=== PATIENT | female | born 1945 | race Caucasian/White ===

== ENCOUNTER 2018-05-16 09:20 | Emergency (ER) | payer MEDICARE ==
--- NOTE | 2018-05-16 09:35 | EDM.PDOC ---
ED HPI GENERAL MEDICAL PROBLEM - General Stated Complaint: BLADDER PAIN Time Seen by Provider: 05/16/18 09:32 - History of Present Illness INITIAL COMMENTS - FREE TEXT/NARRATIVE: HISTORY AND PHYSICAL: History of present illness: Patient is a 72-year-old white female sensory concern of urinary tract infection patient that she's had some mild discomfort and urgency with urination that she is familiar with this and that this clearly represents the start of urinary tract infection she denies back pain fever chills nausea vomiting or other complaints Review of systems: As per history of present illness and below otherwise all systems reviewed and negative. Past medical history: As per history of present illness and as reviewed below otherwise noncontributory. Surgical history: As per history of present illness and as reviewed below otherwise noncontributory. Social history: No reported history of drug or alcohol abuse. Family history: As per history of present illness and as reviewed below otherwise noncontributory. Physical exam: HEENT: Atraumatic, normocephalic, pupils reactive, negative for conjunctival pallor or scleral icterus, mucous membranes moist, throat clear, neck supple, nontender, trachea midline. Lungs: Clear to auscultation, breath sounds equal bilaterally, chest nontender. Heart: S1S2, regular, negative for clicks, rubs, or JVD. Abdomen: Soft, nondistended, nontender. Negative for masses or hepatosplenomegaly. Negative for costovertebral tenderness. Pelvis: Stable nontender. Genitourinary: Deferred. Rectal: Deferred. Extremities: Atraumatic, negative for cords or calf pain. Neurovascular unremarkable. Neuro: Awake, alert, oriented. Cranial nerves II through XII unremarkable. Cerebellum unremarkable. Motor and sensory unremarkable throughout. Exam nonfocal. Diagnostics: UA C&S Therapeutics: None Impression: #1 dysuria rule out urinary tract infection Definitive disposition and diagnosis as appropriate pending reevaluation and review of above. ED ROS GENERAL - Review of Systems Review Of Systems: ROS reveals no pertinent complaints other than HPI. ED EXAM, GENERAL - Physical Exam Exam: See Below (See dictation) Departure - Departure Time of Disposition: 09:34 Disposition: Home, Self-Care 01 Condition: Good Clinical Impression: UTI (urinary tract infection) - Discharge Information *PRESCRIPTION DRUG MONITORING PROGRAM REVIEWED*: Not Applicable *COPY OF PRESCRIPTION DRUG MONITORING REPORT IN PATIENT ZOHRA: Not Applicable Referrals: PCP,None [Primary Care Provider] - Additional Instructions: The following information is given to patients seen in the emergency department who are being discharged to home. This information is to outline your options for follow-up care. We provide all patients seen in our emergency department with a follow-up referral. The need for follow-up, as well as the timing and circumstances, are variable depending upon the specifics of your emergency department visit. If you don't have a primary care physician on staff, we will provide you with a referral. We always advise you to contact your personal physician following an emergency department visit to inform them of the circumstance of the visit and for follow-up with them and/or the need for any referrals to a consulting specialist. The emergency department will also refer you to a specialist when appropriate. This referral assures that you have the opportunity for followup care with a specialist. All of these measure are taken in an effort to provide you with optimal care, which includes your followup. Under all circumstances we always encourage you to contact your private physician who remains a resource for coordinating your care. When calling for followup care, please make the office aware that this follow-up is from your recent emergency room visit. If for any reason you are refused follow-up, please contact the [facility] emergency department at and asked to speak to the emergency department charge nurse. Cipro Pyridium as prescribed push fluids follow private medical doctor as needed as discussed and return as needed as discussed
== END 2018-05-16 09:58 | disposition home or self-care (01) ==
LOC: MW.ED 09:20
DX: N39.0 Urinary tract infection, site not specified (principal)
CPT/HCPCS: 81001; 99283

== ENCOUNTER 2019-04-29 21:16 | Emergency (ER) | payer MEDICARE, OTHER ==
--- NOTE | 2019-04-29 21:23 | EDM.PDOC ---
ED HPI GENERAL MEDICAL PROBLEM - General Chief Complaint: Genitourinary Problem Stated Complaint: POSSIBLE UTI Time Seen by Provider: 04/29/19 21:20 - History of Present Illness INITIAL COMMENTS - FREE TEXT/NARRATIVE: HISTORY AND PHYSICAL: History of present illness: Patient is a 73-year-old white female presents with a concern of frequency and discomfort with urination 1 day she's had no fever chills nausea vomiting no back pain she states she's had similar episodes in the past with urinary tract infection. Review of systems: As per history of present illness and below otherwise all systems reviewed and negative. Past medical history: As per history of present illness and as reviewed below otherwise noncontributory. Surgical history: As per history of present illness and as reviewed below otherwise noncontributory. Social history: No reported history of drug or alcohol abuse. Family history: As per history of present illness and as reviewed below otherwise noncontributory. Physical exam: HEENT: Atraumatic, normocephalic, pupils reactive, negative for conjunctival pallor or scleral icterus, mucous membranes moist, throat clear, neck supple, nontender, trachea midline. Lungs: Clear to auscultation, breath sounds equal bilaterally, chest nontender. Heart: S1S2, regular, negative for clicks, rubs, or JVD. Abdomen: Soft, nondistended, nontender. Negative for masses or hepatosplenomegaly. Negative for costovertebral tenderness. Pelvis: Stable nontender. Genitourinary: Deferred. Rectal: Deferred. Extremities: Atraumatic, negative for cords or calf pain. Neurovascular unremarkable. Neuro: Awake, alert, oriented. Cranial nerves II through XII unremarkable. Cerebellum unremarkable. Motor and sensory unremarkable throughout. Exam nonfocal. Diagnostics: UA Therapeutics: None Impression: #1 urinary tract infection Definitive disposition and diagnosis as appropriate pending reevaluation and review of above. - Related Data Allergies Allergy/AdvReac Type Severity Reaction Status Date / Time No Known Allergies Allergy Verified 04/29/19 21:18 Home Meds: Home Meds Aspirin 87 mg PO BEDTIME 05/16/18 [History] Azelastine HCl 0.1 mg PO DAILY 05/16/18 [History] Biotin 5,000 mg PO DAILY 05/16/18 [History] Carvedilol 6.25 mg PO BID 05/16/18 [History] Cetirizine HCl [Zyrtec] 10 mg PO DAILY 05/16/18 [History] Cholecalciferol (Vitamin D3) [D3-2000] 3,000 mg PO DAILY 05/16/18 [History] Fexofenadine [Sonja] 180 mg PO DAILY 05/16/18 [History] Fluticasone Propionate [Flonase Allergy Relief] 50 mg INH DAILY 05/16/18 [ History] Fluticasone/Vilanterol [Breo Ellipta 200-25 Mcg INH] 200 inh PO DAILY 05/16/18 [ History] Furosemide 20 mg PO DAILY 05/16/18 [History] [place]-3/DHA/Epa/Fish Oil [Fish Oil 1,400 MG Softgel] 1,400 mg PO DAILY 05/16/18 [History] Pantoprazole Sodium [Protonix] 40 mg PO BID PRN 05/16/18 [History] Rosuvastatin [Crestor] 20 mg PO BEDTIME 05/16/18 [History] metFORMIN [Glucophage] 500 mg PO BID 05/16/18 [History] predniSONE [Prednisone] 10 mg PO TID 05/16/18 [History] Past Medical History Cardiovascular History: Reports: Hypertension Respiratory History: Reports: Asthma, Pneumonia, Recurrent Musculoskeletal History: Reports: Osteoporosis - Infectious Disease History Infectious Disease History: Reports: Chicken Pox, Measles, Mumps - Past Surgical History HEENT Surgical History: Reports: Tonsillectomy GI Surgical History: Reports: Appendectomy, Cholecystectomy Female Surgical History: Reports: Hysterectomy Musculoskeletal Surgical History: Reports: Carpal Tunnel Other Musculoskeletal Surgeries/Procedures:: knee surgery, finger surgery Social & Family History - Family History Family Medical History: Noncontributory ED ROS GENERAL - Review of Systems Review Of Systems: ROS reveals no pertinent complaints other than HPI. ED EXAM, GENERAL - Physical Exam Exam: See Below (See dictation) Departure - Departure Time of Disposition: 21:22 Disposition: Home, Self-Care 01 Condition: Good Clinical Impression: UTI, Urinary tract infectious disease - Discharge Information Referrals: PCP,None [Primary Care Provider] - Additional Instructions: The following information is given to patients seen in the emergency department who are being discharged to home. This information is to outline your options for follow-up care. We provide all patients seen in our emergency department with a follow-up referral. The need for follow-up, as well as the timing and circumstances, are variable depending upon the specifics of your emergency department visit. If you don't have a primary care physician on staff, we will provide you with a referral. We always advise you to contact your personal physician following an emergency department visit to inform them of the circumstance of the visit and for follow-up with them and/or the need for any referrals to a consulting specialist. The emergency department will also refer you to a specialist when appropriate. This referral assures that you have the opportunity for followup care with a specialist. All of these measure are taken in an effort to provide you with optimal care, which includes your followup. Under all circumstances we always encourage you to contact your private physician who remains a resource for coordinating your care. When calling for followup care, please make the office aware that this follow-up is from your recent emergency room visit. If for any reason you are refused follow-up, please contact the [facility] emergency department at and asked to speak to the emergency department charge nurse. [facility] [address] [place] [id number] Cipro as prescribed push fluids follow-up primary medical doctor and/or clinic above return as needed as discussed
== END 2019-04-29 22:11 | disposition home or self-care (01) ==
LOC: MW.ED 21:16
DX: N39.0 Urinary tract infection, site not specified (principal); I10 Essential (primary) hypertension; J45.909 Unspecified asthma, uncomplicated; Z79.82 Long term (current) use of aspirin; Z79.899 Other long term (current) drug therapy
CPT/HCPCS: 81001; 87086; 87088; 87186; 99282; 99283

== ENCOUNTER 2020-02-21 12:58 | Emergency (ER) | payer MEDICARE, OTHER ==
[2020-02-21] MEDS ORDERED: Tetracaine HCl/PF 0.5% 4 ML Bottle EYEBOTH ONE (13:00)
--- NOTE | 2020-02-21 13:17 | EDM.PDOC ---
ED HPI GENERAL MEDICAL PROBLEM - General Chief Complaint: Eye Problems Stated Complaint: PRESSURE BEHIND EYE Time Seen by Provider: 02/21/20 13:00 Source of Information: Reports: Patient History Limitations: Reports: No Limitations - History of Present Illness INITIAL COMMENTS - FREE TEXT/NARRATIVE: HISTORY AND PHYSICAL: History of present illness: Patient is a 74-year-old female who presents to the emergency room today with complaints of left eye pressure x 3-4 days. She states last week she saw her national secretary in [place] for a routine checkup and was told everything was "fine". Since arriving to [place] a few days ago she noticed some pressure behind her left eye. She states she has no visual changes although does become blurry occasionally. She denies any headache, floaters, dark curtain, double vision etc... She denies any injury, trauma, falls or sensation of foreign body in the eye. She does not wear glasses or contact lenses. She states her only eye history is cataract surgery approximately 3 years ago. Patient denies any fever, chills, headache, change in vision, syncope or near syncope. Denies any chest pain, back pain, shortness of breath or cough. Denies any abdominal pain, nausea, vomiting, diarrhea, constipation or dysuria. Has not noted any blood in urine or stool. Patient has been eating and drinking appropriately. Review of systems: As per history of present illness and below otherwise all systems reviewed and negative. Past medical history: As per history of present illness and as reviewed below otherwise noncontributory. Surgical history: As per history of present illness and as reviewed below otherwise noncontributory. Social history: See social history for further information Family history: As per history of present illness and as reviewed below otherwise noncontributory. Physical exam: General: Well-developed and well-nourished 74-year-old female. Alert and oriented. Nontoxic-appearing and in no acute distress. HEENT: Atraumatic, normocephalic, pupils equal and reactive bilaterally, negative for conjunctival pallor or scleral icterus, mucous membranes moist, TMs normal bilaterally, throat clear, neck supple, nontender, trachea midline. No drooling or trismus noted. No meningeal signs. No hot potato voice noted. Lungs: Clear to auscultation, breath sounds equal bilaterally, chest nontender. Heart: S1S2, regular rate and rhythm without overt murmur Abdomen: Soft, nondistended, nontender. Negative for masses or hepatosplenomegaly. Negative for costovertebral tenderness. Pelvis: Stable nontender. Skin: Intact, warm, dry. No lesions or rashes noted. Extremities: Atraumatic, moves all extremities per self without difficulty or deficits, negative for cords or calf pain. Neurovascular unremarkable. Neuro: Awake, alert, oriented. Cranial nerves II through XII unremarkable. Cerebellum unremarkable. Motor and sensory unremarkable throughout. Exam nonfocal. Notes: Visual acuity: left 20/50, right 20/30, both 20/25. Fluorescein eye exam shows no corneal abrasions. Azar-Pen shows reading of 16mmHg bilaterally. I did call Dr Pacheco, ophthalmology on-call about this patient. He states this patient is not emergent and he is full today but would happily see her tomorrow. He is aware of the patient's stated complaint, history and current findings today. He will see the patient tomorrow at 12:45 PM. This information was shared with the patient. Supportive care measures were reviewed and discussed. Voices understanding and is agreeable to plan of care. Denies any further questions or concerns at this time. Diagnostics: Visual acuity, Azar-Pen Therapeutics: Tetracaine eyedrops Prescription: None Impression: Left eye pressure Plan: 1. Dr Pacheco is an national secretary located at [facility] (across the [facility] ), he will see you tomorrow (02/22/2020) at 12:45pm 2. If at any time your vision should change, worsen or new symptoms develop please return to the emergency room immediately. Definitive disposition and diagnosis as appropriate pending reevaluation and review of above. - Related Data Allergies Allergy/AdvReac Type Severity Reaction Status Date / Time No Known Allergies Allergy Verified 04/29/19 21:18 Home Meds: Home Meds Aspirin 87 mg PO BEDTIME 05/16/18 [History] Azelastine HCl 0.1 mg PO DAILY 05/16/18 [History] Biotin 5,000 mg PO DAILY 05/16/18 [History] Cholecalciferol (Vitamin D3) [D3-2000] 3,000 mg PO DAILY 05/16/18 [History] Fexofenadine [Sonja] 180 mg PO DAILY 05/16/18 [History] Fluticasone Propionate [Flonase Allergy Relief] 50 mg INH DAILY 05/16/18 [ History] Fluticasone/Vilanterol [Breo Ellipta 200-25 Mcg INH] 200 inh PO DAILY 05/16/18 [ History] Furosemide 20 mg PO DAILY 05/16/18 [History] [place]-3/DHA/Epa/Fish Oil [Fish Oil 1,400 MG Softgel] 1,400 mg PO DAILY 05/16/18 [History] Rosuvastatin [Crestor] 20 mg PO BEDTIME 05/16/18 [History] carvediloL [Carvedilol] 6.25 mg PO BID 05/16/18 [History] metFORMIN [Glucophage] 500 mg PO BID 05/16/18 [History] Past Medical History Cardiovascular History: Reports: Hypertension Respiratory History: Reports: Asthma, Pneumonia, Recurrent Musculoskeletal History: Reports: Osteoporosis Psychiatric History: Reports: None Hematologic History: Reports: None - Infectious Disease History Infectious Disease History: Reports: Chicken Pox, Measles, Mumps - Past Surgical History HEENT Surgical History: Reports: Tonsillectomy GI Surgical History: Reports: Appendectomy, Cholecystectomy Female Surgical History: Reports: Hysterectomy Musculoskeletal Surgical History: Reports: Carpal Tunnel Other Musculoskeletal Surgeries/Procedures:: knee surgery, finger surgery Social & Family History - Family History Family Medical History: Noncontributory ED ROS GENERAL - Review of Systems Review Of Systems: Comprehensive ROS is negative, except as noted in HPI. ED EXAM GENERAL W FULL EYE - Physical Exam Exam: See Below (See dictation) Course - Vital Signs Last Recorded V/S: Last Vital Signs Temp 97.6 F 02/21/20 13:48 Pulse 70 02/21/20 14:10 Resp 18 02/21/20 14:10 BP 150/70 H 02/21/20 14:10 Pulse Ox 96 02/21/20 14:10 - Orders/Labs/Meds Orders: Active Orders 24 hr Category Date Time Status Visual Acuity [Vision Test] [RC] ASDIRECTED Care 02/21/20 13:00 Active Meds: Medications Discontinued Medications Generic Name Dose Route Start Last Admin Trade Name Freq PRN Reason Stop Dose Admin Tetracaine HCl 1 ml 02/21/20 13:00 Tetracaine 0.5% Steri-Unit Meena EYEBOTH 02/21/20 13:01 ASDIRECTED ONE Departure - Departure Time of Disposition: 17:58 Disposition: Home, Self-Care 01 Clinical Impression: Eye pressure - Discharge Information Instructions: Medical Screening Exam Referrals: PCP,Not In Area [Primary Care Provider] - Forms: ED Department Discharge Additional Instructions: The following information is given to patients seen in the emergency department who are being discharged to home. This information is to outline your options for follow-up care. We provide all patients seen in our emergency department with a follow-up referral. The need for follow-up, as well as the timing and circumstances, are variable depending upon the specifics of your emergency department visit. If you don't have a primary care physician on staff, we will provide you with a referral. We always advise you to contact your personal physician following an emergency department visit to inform them of the circumstance of the visit and for follow-up with them and/or the need for any referrals to a consulting specialist. The emergency department will also refer you to a specialist when appropriate. This referral assures that you have the opportunity for follow-up care with a specialist. All of these measure are taken in an effort to provide you with optimal care, which includes your follow-up. Under all circumstances we always encourage you to contact your private physician who remains a resource for coordinating your care. When calling for follow-up care, please make the office aware that this follow-up is from your recent emergency room visit. If for any reason you are refused follow-up, please contact the [facility] Emergency Department at and asked to speak to the emergency department charge nurse. [id number] Pacheco is an national secretary located at [facility] ([facility] the [facility] ), he will see you tomorrow (02/22/2020) at 12:45pm. Please arrive 15 minutes early to your appointment. 2. If at any time your vision should change, worsen or new symptoms develop please return to the emergency room immediately. Sepsis Event Note - Focused Exam Vital Signs: Vital Signs Temp Pulse Resp BP Pulse Ox 02/21/20 14:10 70 18 150/70 H 96 02/21/20 13:48 97.6 F 79 18 151/70 H 96 Date Exam was Performed: 02/21/20 Time Exam was Performed: 17:52 - My Orders Last 24 Hours: My Active Orders 02/21/20 13:00 Visual Acuity [Vision Test] [RC] ASDIRECTED - Assessment/Plan Last 24 Hours: My Active Orders 02/21/20 13:00 Visual Acuity [Vision Test] [RC] ASDIRECTED
== END 2020-02-21 14:13 | disposition home or self-care (01) ==
LOC: MW.ED 12:58
DX: H57.89 Other specified disorders of eye and adnexa (principal); I10 Essential (primary) hypertension; J45.909 Unspecified asthma, uncomplicated; Z79.82 Long term (current) use of aspirin; Z79.84 Long term (current) use of oral hypoglycemic drugs; Z79.899 Other long term (current) drug therapy
CPT/HCPCS: 99283

== ENCOUNTER 2021-05-18 11:04 | Emergency (ER) | payer MEDICARE, OTHER ==
--- NOTE | 2021-05-18 11:50 | EDM.PDOC ---
ED HPI GENERAL MEDICAL PROBLEM - General Chief Complaint: Lower Extremity Injury/Pain Stated Complaint: NUMB RIGHT LEG/CANT FEEL ANYTHING Time Seen by Provider: 05/18/21 11:33 Source of Information: Reports: Patient History Limitations: Reports: No Limitations - History of Present Illness INITIAL COMMENTS - FREE TEXT/NARRATIVE: 75-year-old female past medical history spinal stenosis presents for worsening of chronic right-sided lower back pain radiating down leg. Patient notes that she has had a lot of pain in this area for a few years. She had an MRI done several months ago revealing spinal stenosis and has an appointment on June [address] Carrero in [place], neurosurgery, to discuss possible laminectomy. She is noticed over the last 2 weeks worsening of symptoms, was originally just having numbness to her thigh and now it is traveling down to her knee. She also notes some worsening of chronic motor weakness in the right lower extremity. She notes chronic urinary incontinence unchanged from baseline. She tried to get in with her PCP to have an MRI done which was requested by the neurosurgeon before seeing her on the , however, she is unable to get in with him as she is not an established patient in [place]. She splits her time between [place] in [place] and most of her medical care is done in [place]. right back and leg Pain Score (Numeric/FACES): 6 - Related Data Allergies Allergy/AdvReac Type Severity Reaction Status Date / Time No Known Allergies Allergy Verified 05/18/21 11:40 Home Meds: Home Meds Aspirin 87 mg PO BEDTIME 05/16/18 [History] Azelastine HCl 0.1 mg PO DAILY 05/16/18 [History] Biotin 5,000 mg PO DAILY 05/16/18 [History] Cholecalciferol (Vitamin D3) [D3-2000] 3,000 mg PO DAILY 05/16/18 [History] Fexofenadine [Sonja] 180 mg PO DAILY 05/16/18 [History] Fluticasone Propionate [Flonase Allergy Relief] 50 mg INH DAILY 05/16/18 [History] Fluticasone/Vilanterol [Breo Ellipta 200-25 Mcg INH] 200 inh PO DAILY 05/16/18 [History] Furosemide 20 mg PO DAILY 05/16/18 [History] Garland-3/DHA/Epa/Fish Oil [Fish Oil 1,400 MG Softgel] 1,400 mg PO DAILY 05/16/18 [History] Rosuvastatin [Crestor] 20 mg PO BEDTIME 05/16/18 [History] carvediloL [Carvedilol] 6.25 mg PO BID 05/16/18 [History] metFORMIN [Glucophage] 500 mg PO BID 05/16/18 [History] Past Medical History Cardiovascular History: Reports: Hypertension Respiratory History: Reports: Asthma, Pneumonia, Recurrent Genitourinary History: Reports: None [employer] 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 Musculoskeletal History: Reports: Osteoporosis Neurological History: Reports: None Psychiatric History: Reports: None Endocrine/Metabolic History: Reports: None Hematologic History: Reports: None Immunologic History: Reports: None Oncologic (Cancer) History: Reports: None Dermatologic History: Reports: None - Infectious Disease History Infectious Disease History: Reports: Chicken Pox, Measles, Mumps - Past Surgical History Head Surgeries/Procedures: Reports: None HEENT Surgical History: Reports: Tonsillectomy GI Surgical History: Reports: Appendectomy, Cholecystectomy Female Surgical History: Reports: Hysterectomy Musculoskeletal Surgical History: Reports: Carpal Tunnel Other Musculoskeletal Surgeries/Procedures:: knee surgery, finger surgery Social & Family History - Family History Family Medical History: No Pertinent Family History - Tobacco Use Tobacco Use Status *Q: Never Tobacco User Second Hand Smoke Exposure: No - Caffeine Use Caffeine Use: Reports: None - Recreational Drug Use Recreational Drug Use: No Review of Systems - Review of Systems Review Of Systems: Comprehensive ROS is negative, except as noted in HPI. ED EXAM, GENERAL - Physical Exam Exam: See Below Exam Limited By: No Limitations General Appearance: Alert, WD/WN, No Apparent Distress Ears: Hearing Grossly Normal Throat/Mouth: Normal Voice, No Airway Compromise Head: Atraumatic, Normocephalic Neck: Normal Inspection Respiratory/Chest: No Respiratory Distress, Lungs Clear, Normal Breath Sounds, No Accessory Muscle Use Cardiovascular: Normal Peripheral Pulses, Regular Rate, Rhythm Back Exam: Other (Tenderness to palpation of the right para lumbar vertebral musculature) Extremities: Normal Inspection, Other (Normal muscle strength in bilateral lower extremities, subjective numbness and tingling sensation however normal sensation to right lower extremity) Neurological: Alert, CN II-XII Intact, Normal Cognition, Normal Gait, No Motor/Sensory Deficits Psychiatric: Normal Affect, Normal Mood Skin Exam: Warm, Dry, Intact, Normal Color Course - Vital Signs Last Recorded V/S: Last Vital Signs Temp 97.8 F 05/18/21 11:37 Pulse 102 H 05/18/21 11:37 Resp 18 05/18/21 11:37 BP 155/72 H 05/18/21 11:37 Pulse Ox 98 05/18/21 11:37 - Re-Assessments/Exams Free Text/Narrative Re-Assessment/Exam: 05/18/21 12:05 Patient presents with worsening chronic back pain. Will write an outpatient order for MRI to be faxed to patient's neurosurgeon and primary care physician. I have a low suspicion for emergent causes of low back pain and believe that this patient will be stable for outpatient imaging and follow-up. Return precautions were discussed with the patient at length. Departure - Departure Time of Disposition: 12:06 Disposition: Home, Self-Care 01 Condition: Good Clinical Impression: Spinal stenosis Qualifiers: Spinal region: lumbar Neurogenic claudication status: without neurogenic claudication Qualified Code(s): M48.061 - Spinal stenosis, lumbar region without neurogenic claudication - Discharge Information Instructions: Spinal Stenosis, [id number] Referrals: PCP,Not In Area [Primary Care Provider] - Forms: ED Department Discharge Additional Instructions: You have been given an outpatient order for MRI. These results should be faxed to your neurosurgeon. I would also suggest picking up a DVD of the scan so that you may share that with your neurosurgeon when you follow-up with him later this month. If your condition acutely worsens then please come back to the emergency department for reassessment. The following information is given to patients seen in the emergency department who are being discharged to home. This information is to outline your options for follow-up care. We provide all patients seen in our emergency department with a follow-up referral. The need for follow-up, as well as the timing and circumstances, are variable depending upon the specifics of your emergency department visit. If you don't have a primary care physician on staff, we will provide you with a referral. We always advise you to contact your personal physician following an emergency department visit to inform them of the circumstance of the visit and for follow-up with them and/or the need for any referrals to a consulting specialist. The emergency department will also refer you to a specialist when appropriate. This referral assures that you have the opportunity for follow-up care with a specialist. All of these measure are taken in an effort to provide you with optimal care, which includes your follow-up. Under all circumstances we always encourage you to contact your private physician who remains a resource for coordinating your care. When calling for follow-up care, please make the office aware that this follow-up is from your recent emergency room visit. If for any reason you are refused follow-up, please contact the [facility] Emergency Department at and asked to speak to the emergency department charge nurse. Please follow up with your primary care physician. If you do not have a primary care physician, see below: [facility] [address] [place] [id number] [facility] [address] [place] [id number] [facility] [address] [place] [id number] Sepsis Event Note (ED) - Evaluation Sepsis Screening Result: No Definite Risk - Focused Exam Vital Signs: Vital Signs Temp Pulse Resp BP Pulse Ox 05/18/21 11:37 97.8 F 102 H 18 155/72 H 98
== END 2021-05-18 12:23 | disposition home or self-care (01) ==
LOC: MW.ED 11:04
DX: M48.061 Spinal stenosis, lumbar region without neurogenic claudication (principal); J45.909 Unspecified asthma, uncomplicated; I10 Essential (primary) hypertension; Z79.82 Long term (current) use of aspirin; Z79.899 Other long term (current) drug therapy
CPT/HCPCS: 99283

== ENCOUNTER 2023-01-24 11:21 | Emergency (ER) | payer MEDICARE, OTHER ==
[2023-01-24] MEDS ORDERED: Oxymetazoline 0.05% Nasal Spray 30 ML Bottle NAS ONE (11:59)
== END 2023-01-24 13:14 | disposition home or self-care (01) ==
LOC: MW.ED 11:21
DX: R04.0 Epistaxis (principal); I10 Essential (primary) hypertension; J45.909 Unspecified asthma, uncomplicated; Z79.82 Long term (current) use of aspirin; Z79.899 Other long term (current) drug therapy
CPT/HCPCS: 99283; A9270

== ENCOUNTER 2023-05-23 14:28 | Emergency (ER) | payer MEDICARE, OTHER | END 2023-05-23 16:33 | disposition home or self-care (01) | LOC: MW.ED 14:28 | DX: Z48.03 Encounter for change or removal of drains (principal); I10 Essential (primary) hypertension; J45.909 Unspecified asthma, uncomplicated; Z79.899 Other long term (current) drug therapy; Z88.5 Allergy status to narcotic agent | CPT/HCPCS: 99282 ==

== ENCOUNTER 2025-05-11 12:05 | Emergency (ER) | payer MEDICARE, OTHER ==
[2025-05-11 12:28] LABS: APPEARANCE,URINE CLEAR; GLUCOSE,URINE NEGATIVE (NEGATIVE); OCCULT BLOOD,URINE NEGATIVE (NEGATIVE)
[2025-05-11 12:36] LABS: EPITHELIAL CELLS,URINE FEW (NONE-FEW)
== END 2025-05-11 12:38 | disposition home or self-care (01) ==
LOC: MW.ED 12:05
DX: J32.9 Chronic sinusitis, unspecified (principal); N39.0 Urinary tract infection, site not specified; I10 Essential (primary) hypertension; Z88.5 Allergy status to narcotic agent; Z79.82 Long term (current) use of aspirin; Z79.899 Other long term (current) drug therapy; Z79.84 Long term (current) use of oral hypoglycemic drugs; Z90.49 Acquired absence of other specified parts of digestive tract; Z90.710 Acquired absence of both cervix and uterus
CPT/HCPCS: 81001; 99283